=== PATIENT | male | born 1930 | race Hispanic/Latino ===

== ENCOUNTER → 2018-03-15 | Outpatient (CLI) | payer MEDICARE, OTHER | END | disposition home or self-care (01) | LOC: SHCH 13:06 | PROVIDERS: ATTEND Internal Medicine Cardiovascular Disease | DX: I35.0 Nonrheumatic aortic (valve) stenosis (principal); R94.31 Abnormal electrocardiogram [ECG] [EKG]; I10 Essential (primary) hypertension | CPT/HCPCS: 93306 ==

== ENCOUNTER → 2018-03-20 | Outpatient (CLI) | payer MEDICARE, OTHER ==
[~2018-03-20] MED LIST: REGADENOSON 0.4 MG/5 ML PF SYG IVP SCH
== END | disposition home or self-care (01) ==
LOC: SHCH 08:58
PROVIDERS: ATTEND Internal Medicine Cardiovascular Disease
DX: Z01.810 Encounter for preprocedural cardiovascular examination (principal); R94.31 Abnormal electrocardiogram [ECG] [EKG]
CPT/HCPCS: 78452; 93017; 96374; A9500 ×2; J2785

== ENCOUNTER 2019-04-01 08:14 | Day surgery (SDC) | payer MEDICARE ==
[2019-03-29 15:08] LABS: BASOPHILS % (AUTO) 0.7 % (0.0-5.0); EOSINOPHILS % (AUTO) 1.3 % (0.0-8.0); HEMATOCRIT 37.7 % (42-54); LYMPHOCYTES % (AUTO) 33.9 % (21.0-51.0); MEAN CORPUSCULAR HEMOGLOBIN 29.6 pg (27.0-33.0); MEAN CORPUSCULAR HGB CONC 30.8 g/dL (32.0-36.0); MEAN CORPUSCULAR VOLUME 96.2 fL (79-99); MONOCYTES % (AUTO) 8.3 % (3.0-13.0); NEUTROPHILS % (AUTO) 55.5 % (40.0-77.0); PLATELET COUNT (AUTO) 262 K/uL (130-400); RED BLOOD CELL COUNT(AUTO) 3.92 MIL/uL (4.50-6.20); RED CELL DISTRIBUTION WIDTH 15.7 % (11.0-15.5); WHITE BLOOD COUNT (AUTO) 7.7 K/uL (4.8-10.8)
[2019-03-29 15:27] LABS: CREATININE 3.7 mg/dL (0.5-1.5); POTASSIUM 4.5 mmol/L (3.5-5.1)
[2019-03-29 15:46] VITALS: BP 123/56
[~2019-04-01] VITALS: Ht 162.6 cm; Wt 56.2 kg
[2019-04-01] VITALS (17 sets, daily range): BP systolic 97–124; BP diastolic 43–63
[~2019-04-01 08:14] MED LIST changes: +AMLO10TA7 PO; +ASPI-1197 PO; +ATOR20TA65 PO; +FURO20TA4 PO; +METO-391 PO; +PANT40TA25 PO; -REGADENOSON 0.4 MG/5 ML PF SYG IVP SCH
[2019-04-01] MEDS ORDERED: SODIUM CHLORIDE 0.9% 1000ML 1,000 ML IV ONE (08:22)
[2019-04-01] MEDS ORDERED: MIDAZOLAM HCL 1 MG/ML 2ML VIAL ONE (11:18)
[2019-04-01] MEDS ORDERED: FENTANYL CITRATE PF 50 MCG/1 ML 2ML VIAL ONE (11:19)
[2019-04-01] MEDS ORDERED: THROMBIN-JMI 5000 UNIT/VIAL TP ONE (12:25)
[2019-04-01] MEDS ORDERED: PAPAVERINE HCL 30 MG/ML 2ML VIAL ONE (12:25)
[2019-04-01] MEDS ORDERED: BUPIVACAINE/PF 0.25% 30ML VIAL IJ ONE (12:25)
[2019-04-01] MEDS ORDERED: LIDOCAINE HCL 1% 20 ML VIAL ONE (12:25)
[2019-04-01] MEDS ORDERED: HEPARIN SODIUM 1000UNIT/ML 10ML VIAL ONE (13:06)
[2019-04-01] MEDS ORDERED: PHENYLEPHRINE HCL 10 MG/ML 1ML VIAL IV ONE (13:06)
[2019-04-01] MEDS ORDERED: PROTAMINE SULFATE 10 MG/ML 25ML VIAL IV ONE (15:08)
--- NOTE | 2019-04-01 18:08 | NUR ---
PT LEFT VIA WHEELCHAIR IN PVT CAR WITH RX SCRIPT GIVEN TO ALONG WITH D/C INSTRUCTIONS. NO COMPLICATIONS UPON D/C, V/S STABLE
== END 2019-04-01 18:07 | disposition home or self-care (01) ==
LOC: DAH 08:14
PROVIDERS: ATTEND Student in an Organized Health Care Education/Training Program
DX: I12.0 Hypertensive chronic kidney disease with stage 5 chronic kidney disease or end stage renal disease (principal); E11.22 Type 2 diabetes mellitus with diabetic chronic kidney disease; N18.6 End stage renal disease; Z79.899 Other long term (current) drug therapy; Z79.82 Long term (current) use of aspirin; Z98.890 Other specified postprocedural states
CPT/HCPCS: 36415; 36819; 80048; 85025; 93005; A4215; A4221; A4222; A4223; A4649 ×3; A4663; A6206; A6207; A6260; C1713 ×2; G0168; J1644 ×2; J2250; J2370; J2720; J3010; J7030; J2440; J3490

== ENCOUNTER 2019-06-14 09:27 | Day surgery (SDC) | payer MEDICARE ==
[2019-06-13 10:03] LABS: BASOPHILS % (AUTO) 0.5 % (0.0-5.0); EOSINOPHILS % (AUTO) 2.2 % (0.0-8.0); HEMATOCRIT 38.7 % (42-54); LYMPHOCYTES % (AUTO) 25.7 % (21.0-51.0); MEAN CORPUSCULAR HEMOGLOBIN 29.4 pg (27.0-33.0); MEAN CORPUSCULAR HGB CONC 31.5 g/dL (32.0-36.0); MEAN CORPUSCULAR VOLUME 93.3 fL (79-99); MONOCYTES % (AUTO) 7.2 % (3.0-13.0); NEUTROPHILS % (AUTO) 64.1 % (40.0-77.0); PLATELET COUNT (AUTO) 230 K/uL (130-400); RED BLOOD CELL COUNT(AUTO) 4.15 MIL/uL (4.50-6.20); RED CELL DISTRIBUTION WIDTH 14.2 % (11.0-15.5); WHITE BLOOD COUNT (AUTO) 7.8 K/uL (4.8-10.8)
[2019-06-13 10:11] LABS: INR 1.03 (0.85-1.15); PARTIAL THROMBOPLASTIN TIME 29.4 SEC (26.3-35.5); PROTHROMBIN TIME 11.1 SEC (9.6-11.6)
[2019-06-13 10:17] LABS: ALBUMIN 3.6 g/dL (3.5-5.0); BILIRUBIN,TOTAL 0.4 mg/dL (0.2-1.0); CREATININE 5.4 mg/dL (0.5-1.5); POTASSIUM 4.7 mmol/L (3.5-5.1); TOTAL PROTEIN, SERUM 8.6 g/dL (6.0-8.3)
[2019-06-13 13:53] VITALS: BP 165/69
--- NOTE | 2019-06-13 14:14 | NUR ---
EKG INFORMED DR. SHELL OF EKG. NO ORDERS RECEIVED. PROCEED WITH PLANNED PROCEDURE.
[~2019-06-14] VITALS: Ht 162.6 cm; Wt 60.4 kg
[2019-06-14] VITALS (13 sets, daily range): BP systolic 124–142; BP diastolic 63–73
[~2019-06-14 09:27] MED LIST changes: +AMLO-258 PO; -AMLO10TA7 PO; +CEFAZOLIN SODIUM 1 GM VIAL IVP SCH; -PANT40TA25 PO; +PANT40TA54 PO
[2019-06-14] MEDS ORDERED: SODIUM CHLORIDE 0.9% 1000ML 1,000 ML IV ONE (09:53)
[2019-06-14] MEDS ORDERED: LIDOCAINE PF 2% 5ML ABBOJECT ONE (11:00)
[2019-06-14] MEDS ORDERED: DEXAMETHASONE SOD PHOSPHATE 10MG/ML 1ML VIAL ONE (11:00)
[2019-06-14] MEDS ORDERED: SUCCINYLCHOLINE CHLORIDE 20 MG/ML 10 ML VIAL ONE (11:00)
[2019-06-14] MEDS ORDERED: ROCURONIUM 10MG/1ML SYR 10 MG/ML ML ONE (11:01)
[2019-06-14] MEDS ORDERED: MIDAZOLAM HCL 1 MG/ML 2ML VIAL ONE (11:01)
[2019-06-14] MEDS ORDERED: PROPOFOL 10 MG/ML 20ML VIAL IV ONE (11:01)
[2019-06-14] MEDS ORDERED: ONDANSETRON HCL 4 MG/2 ML VIAL ONE (11:01)
[2019-06-14] MEDS ORDERED: FENTANYL CITRATE PF 50 MCG/1 ML 2ML VIAL ONE (11:03)
[2019-06-14] MEDS ORDERED: ALBUMIN (HUMAN) 25% 50 ML IV ONE (11:22)
[2019-06-14] MEDS ORDERED: EPHEDRINE SULFATE 50 MG/ML AMPULE ONE (11:32)
--- NOTE | 2019-06-14 14:10 | NUR ---
patient arrived to day patient via stretcher by juanita mcgowan rn. patient [id number], respirations unlabored, vital signs stable, denies any pain at this time. dressing to right arm dry/intact. no bleeding or drainage noted.
--- NOTE | 2019-06-14 14:35 | NUR ---
discharge instructions explained to patient's spouse (nadine) via telephone. instructions from handouts read to patient's spouse and follow up appointment provided as well. all questions and concerns addressed.
--- NOTE | 2019-06-14 14:55 | NUR ---
patient discharged from facility via wheelchair by nurse (melania) and assisted into private vehicle driven by spouse.
== END 2019-06-14 14:55 | disposition home or self-care (01) ==
LOC: DAH 09:27
PROVIDERS: ATTEND Student in an Organized Health Care Education/Training Program
DX: T82.511A Breakdown (mechanical) of surgically created arteriovenous shunt, initial encounter (principal); I12.0 Hypertensive chronic kidney disease with stage 5 chronic kidney disease or end stage renal disease; E11.22 Type 2 diabetes mellitus with diabetic chronic kidney disease; N18.6 End stage renal disease; I45.10 Unspecified right bundle-branch block; I21.9 Acute myocardial infarction, unspecified; I25.2 Old myocardial infarction; Z99.2 Dependence on renal dialysis; Z79.899 Other long term (current) drug therapy; Y83.8 Other surgical procedures as the cause of abnormal reaction of the patient, or of later complication, without mention of misadventure at the time of the procedure
CPT/HCPCS: 36415 ×2; 36821; 71045; 80053; 82948 ×2; 84132; 85025; 85610; 85730; 86850; 86900; 86901; 93005; A4215; A4221; A4222; A4223; A4649 ×2; A4663; A4930 ×2; A6219; A6260; G0168; J0330; J0690; J1100; J1644; J2001; J2250; J2405; J2704; J3010; J3490; J7030 ×2; P9047